=== PATIENT | female | born 1940 | race Two or more races ===

== ENCOUNTER 2022-02-26 13:48 | Inpatient (IN) | payer OTHER ==
[~2022-02-26] VITALS: Ht 167.6 cm; Wt 72.6 kg
--- NOTE | 2022-02-26 13:59 | NUR ---
PACIENTE FEMINA ALERTA; ACOMPANADA POR HIJA QUIEN REFIERE QUE LA MISMA SUFRIO CAIDA EN LA MANANA DE HOY. LA MISMA REFIERE QUE LA PTE SE QUEJA DE REAGAN PIERNA IZQUIERDA. SE MONITOREAN VS Y SE UBICA EN ALBA DE ESPERA
--- NOTE | 2022-02-26 15:21 | NUR ---
PACIENTE EVALUADA POR EL DR. MEDRANO. PACIENTE PENDIENTE A REALIZAR PLACAS. PERSONAL DE RADIOGRAFIA YA NOTIFICADO.
--- NOTE | 2022-02-26 18:00 | NUR ---
SE ERWIN MUESTRAS DE RADHIKA Y COVID AL PACIENTE. SE INSERTA RAY PRESENTANDO ORINA AMARILLA SORAYA SIN SEDIMENTACION O HEMATURIA. PLACAS YA REALIZA POR PERSONAL DE RADIOGRAFIA.
--- NOTE | 2022-02-26 18:18 | NUR ---
SE FRANNIE YOAN Y SE PRESENTA AL DR. BOTELLO.
--- NOTE | 2022-02-26 20:24 | NUR ---
SE FRANNIE U/A Y CULTIVO DE ORINA
[2022-03-02] MEDS ORDERED: ELIQUIS2.5 MG PO (08:21)
[2022-03-02] MEDS ORDERED: ULTRACET PO (08:21)
== END 2022-03-02 12:01 | disposition home or self-care (01) | DRG 522 ==
LOC: ER 13:48 → SURG 21:20
PROVIDERS: Orthopaedic Surgery; ADMIT Internal Medicine; ATTEND Internal Medicine
PROC: 0MBM0ZZ Excision of Left Hip Bursa and Ligament, Open Approach (ICD-10-PCS; 2022-02-27)
PROC: 0SRS0J9 Replacement of Left Hip Joint, Femoral Surface with Synthetic Substitute, Cemented, Open Approach (ICD-10-PCS; principal; 2022-02-27 10:00)
DX: S72.032A Displaced midcervical fracture of left femur, initial encounter for closed fracture (principal); M80.052A Age-related osteoporosis with current pathological fracture, left femur, initial encounter for fracture; M16.12 Unilateral primary osteoarthritis, left hip; G30.9 Alzheimer's disease, unspecified; F02.80 Dementia in other diseases classified elsewhere, unspecified severity, without behavioral disturbance, psychotic disturbance, mood disturbance, and anxiety

== ENCOUNTER 2023-05-18 15:39 | Emergency (ER) | payer OTHER ==
[~2023-05-18] VITALS: Ht 162.6 cm; Wt 68.0 kg
[~2023-05-18 15:39] MED LIST: ELIQUIS2.5 MG PO; ULTRACET PO
[2023-05-18] MEDS ORDERED: DIPHENHYDRAMINE HCL 50 MG/ML VIAL 1ML IM ONE (21:00)
== END 2023-05-19 01:11 ==
LOC: ER 15:39
DX: S02.2XXA Fracture of nasal bones, initial encounter for closed fracture (principal); W18.2XXA Fall in (into) shower or empty bathtub, initial encounter; Y93.F1 Activity, caregiving, bathing; Y92.012 Bathroom of single-family (private) house as the place of occurrence of the external cause; G30.8 Other Alzheimer's disease; F02.80 Dementia in other diseases classified elsewhere, unspecified severity, without behavioral disturbance, psychotic disturbance, mood disturbance, and anxiety
CPT/HCPCS: 70450; 70486; 96372; 99284; J1200